=== PATIENT | female | born 1995 | race Caucasian/White ===

== ENCOUNTER → 2019-09-13 | Outpatient (CLI) | payer BC ==
--- NOTE | 2019-09-13 16:18 | REP ---
Clinical: Anatomical evaluation. Comparison: None . Findings: Examination demonstrates a single live intrauterine in cephalic presentation. motion is identified by technologist. Placenta is noted posterior and grade I without evidence for placenta previa or abruption. Amniotic fluid volume is normal. Cervix measures 3.1 cm in length and appears closed. No evidence for nuchal cord. Gestational age by current measurements 19 weeks 2 days with JUANJOSE 02/05/2020 . FHR equals 140 beats per minute. BPD 4.5 cm 19 weeks 4 days HC 16.3 cm 19 weeks 1 day AC 14.4 cm 19 weeks 5 days FL 3.0 cm 19 weeks 3 days HL 3.0 cm 20 weeks 0 days HC/AC ratio 1.13 Estimated weight 297 grams ( 56 percentile). Anatomical assessment demonstrates normal structures including cranium, choroid plexus, cavum, cerebellum/posterior fossa, facial features, lungs, cardiac ventricular outflow tracts, diaphragm, stomach, cord insertion/three-vessel cord, kidneys/bladder, spine, and extremities. Four-chamber heart view demonstrates echogenic focus in the left cardiac ventricle consistent with prominent chordae tendineae. Impression: Single live intrauterine in cephalic presentation demonstrating appropriate estimated weight. Anatomical findings as above.
== END ==
LOC: M WHC 12:55
PROVIDERS: ATTEND Advanced Practice Midwife
DX: Z36.3 Encounter for antenatal screening for malformations (principal); Z3A.19 19 weeks gestation of pregnancy

== ENCOUNTER → 2019-10-24 | Outpatient (REF) | payer BC ==
[~2019-10-24] MED LIST: PRENTAB9 PO; TUMS500C PO
[2019-11-26 10:44] LABS: HEMATOCRIT 37.1 % (36.0-47.0); HEMOGLOBIN 12.4 g/dl (12.0-15.5); MEAN CORPUSCULAR HGB CONC 33.4 g/dl (32.0-36.5); MEAN CORPUSCULAR VOLUME 95.9 fl (80.0-96.0); PLATELET COUNT, AUTOMATED 227 10^3/uL (150-450); RED BLOOD COUNT 3.87 10^6/uL (4.00-5.40); WHITE BLOOD COUNT 9.4 10^3/uL (4.0-10.0)
== END ==
LOC: M SFHCWAGY 16:14
PROVIDERS: ATTEND Advanced Practice Midwife
DX: Z34.02 Encounter for supervision of normal first pregnancy, second trimester (principal)

== ENCOUNTER → 2019-12-05 | Outpatient (CLI) | payer BC ==
--- NOTE | 2019-12-15 08:12 | REP ---
LIMITED OBSTETRICAL ULTRASOUND CLINICAL: Age discrepancy. TECHNIQUE: Transabdominal obstetrical ultrasound with color Doppler evaluation. FINDINGS: Ultrasound examination demonstrates single live advanced gestation in cephalic presentation. motion identified by technologist. Placenta noted posteriorly and grade 1 without placenta previa or abruption. Amniotic fluid volume is normal. Cervix measures 3.3 cm in length and appears closed. Gestational age by LMP 32 weeks 1 day with estimated date of delivery 01/29/2020. Gestational age by current measurements 30 weeks 3 days with estimated date of delivery 02/10/2020. heart rate 149 beats per minute. BPD 7.5 cm 30 weeks 0 days. HC 27.4 cm 29 weeks 6 days AC 25.9 cm 30 weeks 0 days. FL 6.0 cm 31 weeks 3 days. HL 5.3 cm 30 weeks 5 days HC/AC ratio 1.06. Estimated weight 1,571 grams (less than 3rd percentile based on age by LMP). KATIE 11.5 cm. IMPRESSION: Single live advanced gestation in cephalic presentation. Estimated weight falls below 3rd percentile, and fetus appears small for age based on measurements. MTDD
== END ==
LOC: M WHC 09:57
PROVIDERS: ATTEND Obstetrics & Gynecology
DX: O36.5913 Maternal care for other known or suspected poor fetal growth, first trimester, fetus 3 (principal); Z3A.32 32 weeks gestation of pregnancy

== ENCOUNTER → 2019-12-15 | Outpatient (CLI) | payer BC ==
--- NOTE | 2019-12-25 10:18 | REP ---
OB ULTRASOUND BIOPHYSICAL PROFILE HISTORY: Intrauterine growth restriction. TECHNIQUE: Real-time sonographic evaluation of the gravid uterus is performed. FINDINGS: There is a single living intrauterine gestation. Estimated gestational age is reportedly 33 weeks 4 days, estimated date of confinement (EDC) 01/29/2020. position is cephalic. Placenta is posterior and grade 1 with no previa or abruption. Three vessel umbilical cord is noted, with S/D ratio of the umbilical artery 2.1 to 2.3. heart rate is 134 beats per minute. Amniotic fluid is within normal limits. Amniotic fluid index (KATIE) 11.1, normal range 8.2 to 24.7. Biophysical profile score is 8/8. Cervix is closed and measures 3.1 cm in length. MTDD
== END ==
LOC: M WHC 11:24
PROVIDERS: ATTEND Obstetrics & Gynecology
DX: O36.5930 Maternal care for other known or suspected poor fetal growth, third trimester, not applicable or unspecified (principal); Z3A.33 33 weeks gestation of pregnancy

== ENCOUNTER → 2019-12-21 | Outpatient (CLI) | payer BC ==
--- NOTE | 2019-12-26 08:05 | REP ---
OB ULTRASOUND HISTORY: Intrauterine growth restriction. TECHNIQUE: Real-time sonographic evaluation of the gravid uterus is performed. FINDINGS: There is a single living intrauterine gestation. The estimated gestational age is reportedly 34 weeks 1 day, estimated date of confinement (EDC) 01/31/2020. Todays measurements again demonstrate estimated weight less than 5th percentile with the average ultrasound age today again about two weeks behind the expected established gestational age, as documented on the ultrasound of 12/05/2019. BIOMETRY AND GROWTH: BPD 78 mm 31 weeks 3 days 11th percentile HC 289 mm 31 weeks 5 days 15th percentile AC 268 mm 30 weeks 6 days Less than 5th percentile Femur length 64 mm 33 weeks 1 day 35th percentile AC/HC ratio 1.08 Normal 0.94 to 1.13 Estimated weight 1819 g Less than 3rd percentile position is cephalic. Placenta is posterior and grade 2 with no previa or abruption. Three-vessel cord is noted. heart rate is 115 beats per minute. Amniotic fluid is within normal limits. Amniotic fluid index (KATIE) 12.8 within normal range of 8.1 to 24.8. Biophysical profile score 8/8. Cervix is closed and measures 3.2 cm in length. S/D ratio of the umbilical artery is measured to be 2.1 to 2.3. MTDD
== END ==
LOC: M WHC 13:04
PROVIDERS: ATTEND Advanced Practice Midwife
DX: Z34.83 Encounter for supervision of other normal pregnancy, third trimester (principal); Z3A.34 34 weeks gestation of pregnancy

== ENCOUNTER → 2019-12-27 | Outpatient (CLI) | payer BC ==
--- NOTE | 2020-01-01 09:10 | REP ---
BIOPHYSICAL PROFILE CLINICAL: wellbeing. TECHNIQUE: Real-time ascencio scale obstetrical ultrasound using curved array transducer with color Doppler evaluation. COMPARISON: 12/21/2019. FINDINGS: Ultrasound examination demonstrates a single live advanced gestation in cephalic presentation. motion identified by technologist. Placenta noted posteriorly and grade 2 without placenta previa or abruption. Amniotic fluid is normal. Cervix measures 3 cm in length and appears closed. Gestational age by last menstrual period (LMP) 35 weeks 0 days with estimated date of delivery 01/31/2020. heart rate 143 beats per minute. Amniotic fluid index: 11.6 cm. Biophysical profile score 8/8. Umbilical artery S/D ratio: Placental insertion 2.0. Mid cord 2.3. insertion 2.1. Limited anatomical assessment cannot exclude nuchal cord. IMPRESSION: Single live advanced gestation in cephalic presentation. Biophysical profile score and amniotic fluid volume are normal. Nuchal cord cannot definitively be excluded. MTDD
== END ==
LOC: M WHC 12:45
PROVIDERS: ATTEND Obstetrics & Gynecology
DX: Z34.93 Encounter for supervision of normal pregnancy, unspecified, third trimester (principal); Z3A.35 35 weeks gestation of pregnancy

== ENCOUNTER → 2020-01-10 | Outpatient (CLI) | payer BC ==
--- NOTE | 2020-01-11 08:30 | REP ---
INDICATION: IUGR,BPP W/CORD DOPPLERS COMPARISON: 12/27/2019 TECHNIQUE: Transabdominal obstetrical ultrasound with color Doppler evaluation. FINDINGS: Examination demonstrates a single live intrauterine in cephalic presentation. motion is identified by technologist. Placenta is noted posterior and grade 2 without evidence for placenta previa or abruption. Amniotic fluid volume is normal. Cervix measures 3.1 cm in length and appears closed.. Gestational age by LMP 37 weeks 0 days with JUANJOSE 01/31/2020. Gestational age by 1st ultrasound 37 weeks 2 days with JUANJOSE 01/29/2020. FHR equals 140 beats per minute. Biophysical profile score: 8/8 KATIE: 10.7 cm Umbilical artery 1 s/D: 2.25 (1.59-3.43) Umbilical artery 2 S/D: 2.50 (1.59-3.43). IMPRESSION: Single live advanced gestation in cephalic presentation. Biophysical profile score, and amniotic fluid index are within normal limits. <Electronically signed by Stanley Payne > 01/11/20 [id number]
== END ==
LOC: M WHC 13:45
PROVIDERS: ATTEND Obstetrics & Gynecology
DX: O36.5931 Maternal care for other known or suspected poor fetal growth, third trimester, fetus 1 (principal); Z3A.37 37 weeks gestation of pregnancy

== ENCOUNTER → 2020-01-10 | Outpatient (REF) | payer BC | LOC: M SFHCWAGY 17:16 | PROVIDERS: ATTEND Advanced Practice Midwife | DX: O36.5930 Maternal care for other known or suspected poor fetal growth, third trimester, not applicable or unspecified (principal) ==

== ENCOUNTER 2020-01-18 15:15 | Inpatient (IN) | payer BC ==
[~2020-01-18] VITALS: Ht 144.8 cm; Wt 57.4 kg
[2020-01-18 15:35] VITALS: BP 118/73
[2020-01-18] MEDS ORDERED: TUMS500C PO (15:58)
[2020-01-18] MEDS ORDERED: PRENTAB9 PO (15:58)
[2020-01-18] MEDS: miSOPROStol 50 MCG 1/2 TAB (S0191) SL SCH ×2 (16:45→20:48)
[2020-01-18 16:50] LABS: HEMATOCRIT 35.7 % (36.0-47.0); HEMOGLOBIN 11.8 g/dl (12.0-15.5); MEAN CORPUSCULAR HEMOGLOBIN 30.4 pg (27.0-33.0); MEAN CORPUSCULAR HGB CONC 33.1 g/dl (32.0-36.5); PLATELET COUNT, AUTOMATED 147 10^3/uL (150-450); RED BLOOD COUNT 3.88 10^6/uL (4.00-5.40); WHITE BLOOD COUNT 9.7 10^3/uL (4.0-10.0)
[2020-01-18 18:00] LABS: HEPATITIS B SURFACE ANTIGEN NEGATIVE (NEGATIVE); HIV 1&2 SCREEN CENTAUR NEGATIVE (NEGATIVE)
[2020-01-18 18:03] VITALS: BP 120/57
[2020-01-18 19:04] VITALS: BP 121/58
--- NOTE | 2020-01-18 19:09 | HPEPDOC ---
Obstetrical History & Physical General Date of Admission Jan 18, 2020 at 15:15 History of Present Illness 24 yp female at 38 1/7 weeks gestation by 10 week ultrasound (EDC=01/31/2020) presents for labor induction due to severe IUGR (<3%). SHe denies contractions. good movement. Information Provided By: Patient Age: 24 : 1 Term: 0 Pre-term: 0 Abortions: 0 Livin Care Care: Good Care Dating Final EDC: Jan 31, 2020 Final EDC by: 1st trimester (US) Antepartum Course Diagnos(e)s IUGR, symmetrical on multiple ultrasounds Past Medical History Past Obstetrical History : Past Obstetrical History: Primgrav[facility]IN NURSE SPEC History: No pertinent history Past Medical History Surgical History: Denies/None Family History Significant Family History: No pertinent family hx Social History Marital Status: Single * Smoker: former Smoker Allergies Coded Allergies: No Known Allergies (Unverified , 01/18/20) Medications Scheduled Calcium Carbonate (Tums) 200 Mg Tab.chew, 2 TAB PO QID for cough and congestion No.137/Iron/Folic Acd ( Vitamin Tablet) 1 Each Tablet, 1 TAB PO DAILY Physical Examination Physical Examination GENERAL: Alert and oriented times three. BREAST: . ABDOMEN: Gravid and non-tender to touch. FETUS: Is vertex (VTX) by sterile vaginal examination (SVE), fetus is vertex (VTX) by Anthony. HEART RATE: Regular rate and rhythm. LUNGS: Clear to auscultation (CTA). EXTREMITIES: No edema. No clonus. Deep tendon reflexes (DTRs) + . Laboratory Data 24H LABS Laboratory Tests 2 01/18/20 16:39: Nucleated Red Blood Cells % (auto) 0.0, Syphilis Serology NONREACTIVE, Hepatitis B Surface Antigen NEGATIVE, HIV Antigen/Antibody Combo Qual NEGATIVE CBC/BMP Laboratory Tests 01/18/20 16:39 Pertinent Laboratoy Data Blood Type: O+ Group B Streptococcus: Positive Vaginal Examination Dilation: 1cm Effacement: 70% Station: -2 Cervical Consistency: Medium Cervical Position: Posterior Presentation: Cephalic presentation Assessment Variability: Moderate Accelerations: Positive Decelerations: None Tocometer Frequency: irregular Duration: less than 60 seconds Strength: palpated as mild Assessment/Plan Assessment Pt is a 24-year-old (G)1 para (P)0 at 38+1 weeks by 10-week ultrasound. Presents to Labor and Delivery (L&D) for induction due to severe IUGR. Plan Admit and orient. Group B Streptococcus (GBS) positive Labs and intravenous (IV) per unit protocol. Counseled on induction of labor (IOL). Anticipate normal spontaneous delivery (). C-S as appropriate. KENNY BARRETT MD Jan 18, 2020 19:09
[2020-01-18 20:21] VITALS: BP 109/63
[2020-01-18 22:49] VITALS: BP 108/56
[2020-01-18] MEDS ORDERED: BUTORPHANOL 2 MG/ML INJ (J0595) IV ONE (23:30)
[2020-01-18] MEDS ORDERED: PROMETHAZINE INJ 25 MG/ML VIAL (J2550) IV ONE (23:30)
[2020-01-19] VITALS (54 sets, daily range): BP systolic 97–150; BP diastolic 54–86
[2020-01-19] MEDS: miSOPROStol 50 MCG 1/2 TAB (S0191) SL SCH ×3 (01:07→08:45)
--- NOTE | 2020-01-19 08:11 | IPNPDOC ---
Text Note Date of Service The patient was seen on 01/19/20. NOTE Inpatient Reports good movement, contractions that are increasing intensity. Denies vaginal bleeding, LOF. Last Cytotec at approximately 0530. SVE 160/-1, midposition, soft by Doris, TIP FHR 140bpm, moderate variability, positive accelerations, no decelerations. UC every 2-4 minutes, lasting 60-100 seconds, mild to moderate on palpation. Plan to eat breakfast. Start Pitocin at [address] Catheter[address] Dr[address] Anaya aware of POC. VS,Fishbone, I+O VS, Fishbone, I+O Laboratory Tests 01/18/20 16:39 Vital Signs Date Time Temp Pulse Resp B/P (MAP) Pulse Ox O2 Delivery O2 Flow Rate FiO2 01/19/20 06:32 88 111/72 (85) 01/19/20 05:04 98.3 01/18/20 20:21 16 Emerita Ureña CNM Jan 19, 2020 08:11
[2020-01-19] MEDS ORDERED: LACTATED RINGER'S 1000 ML IV ONE (08:45)
[2020-01-19] MEDS ORDERED: LR 1,000 ML IV SCH (09:55)
[2020-01-19] MEDS ORDERED: OXYTOCIN 30 UNITS IN 0.9% NaCl 500ML IV BAG (J2590) As Ordered ONE (09:57)
[2020-01-19] MEDS ORDERED: BUTORPHANOL 2 MG/ML INJ (J0595) IV ONE (10:00)
[2020-01-19] MEDS ORDERED: PROMETHAZINE INJ 25 MG/ML VIAL (J2550) IV ONE (10:00)
[2020-01-19] MEDS ORDERED: OXYTOCIN DRIP 30 UNITS in IV 1 EA IV SCH ×2 (10:00→19:45)
[2020-01-19] MEDS ORDERED: PENICILLIN G POTASSIUM IV 5 MU in D5W MINI-BAG PLUS 100 ML IV STA (12:25)
[2020-01-19] MEDS ORDERED: FENTANYL 2MCG/ML ROPIVACAINE 0.2% IN 0.9% NACL 100ML IVBAG As Ordered ONE (12:25)
--- NOTE | 2020-01-19 12:25 | IPNPDOC ---
Text Note Date of Service The patient was seen on 01/19/20. NOTE Reports increased pain despite Stadol and Phenergan. Breathing with coaching through contractions. SVE with BBOW, anterior by TIP George with informed consent. FHR 115bpm, cat 1 tracing UC every 2-4 min, 60-90seconds, moderate on palpation. Requesting epidural placement. Pitocin shut off for epidural placement, will continue when epidural placed. VS,Fishbone, I+O VS, Fishbone, I+O Laboratory Tests 01/18/20 16:39 Vital Signs Date Time Temp Pulse Resp B/P (MAP) Pulse Ox O2 Delivery O2 Flow Rate FiO2 01/19/20 09:43 16 01/19/20 06:32 88 111/72 (85) 01/19/20 05:04 98.3 Emerita Ureña CNM Jan 19, 2020 12:25
[2020-01-19] MEDS ORDERED: LACTATED RINGER'S 1000 ML IV PRN (13:30)
[2020-01-19] MEDS ORDERED: REFRIGERATOR IV KEYS XX PRN (13:30)
[2020-01-19] MEDS ORDERED: EPIDURAL COMMENT XX SCH (13:30)
[2020-01-19] MEDS ORDERED: diphenhydrAMINE 50MG/ML VIAL (J1200) IV PRN (13:30)
[2020-01-19] MEDS ORDERED: NALOXONE INJ 0.4MG/1ML VIAL (J2310 PER 1MG) IV PRN (13:30)
[2020-01-19] MEDS ORDERED: ONDANSETRON 4MG/2ML VIAL IV PRN (13:30)
[2020-01-19] MEDS ORDERED: FENTANYL/ROPIVACAINE/NACL BAG 100 ML EPIDURAL SCH (13:30)
[2020-01-19] MEDS ORDERED: EPIDURAL/PCA KEYS XX PRN (13:30)
[2020-01-19] MEDS ORDERED: ePHEDrine SULFATE 25 MG/5 ML(5MG/ML) SYRINGE IV PRN (13:30)
--- NOTE | 2020-01-19 15:15 | IPNPDOC ---
Text Note Date of Service The patient was seen on 01/19/20. NOTE Inpatient Reports some pressure with epidural but not overwhelming, able to rest. SVE Ant lip/100/0, BBOW. Small amount of bloody show noted at introitus and on glove. FHR 120, moderate variability, positive acels, no decels, Cat 1 UC every 5-7 min, lasting 60-110 seconds, strong on palpation. PCN will be complete at 1630. Anticipate . VS,Fishbone, I+O VS, Fishbone, I+O Laboratory Tests 01/18/20 16:39 Vital Signs Date Time Temp Pulse Resp B/P (MAP) Pulse Ox O2 Delivery O2 Flow Rate FiO2 01/19/20 14:37 68 108/62 (77) 01/19/20 09:43 16 01/19/20 05:04 98.3 Emerita Ureña CNM Jan 19, 2020 15:15
[2020-01-19] MEDS ORDERED: PENICILLIN G POTASSIUM IV 2.5 MU in IV 1 EA IV SCH (16:30)
--- NOTE | 2020-01-19 16:44 | IPNPDOC ---
Text Note Date of Service The patient was seen on 01/19/20. NOTE Inpatient Patient reports feeling contractions more with epidural. Currently Cat 1 FHR 130 bpm, moderate variability, no decelerations, had 2 prolonged decelerations that were alleviated with position changes and LR bolus. UC every 4-5min, 60-120 seconds long, moderate to strong on palpation. SVE 10/100/+1, small amount of bloody show noted by TIP George AROM moderate amount of clear fluid. Pitocin remains off. Pushed x1, not effective, opted to labor down then begin to push. VS,Fishbone, I+O VS, Fishbone, I+O Laboratory Tests 01/18/20 16:39 Vital Signs Date Time Temp Pulse Resp B/P (MAP) Pulse Ox O2 Delivery O2 Flow Rate FiO2 01/19/20 14:37 68 108/62 (77) 01/19/20 09:43 16 01/19/20 05:04 98.3 Emerita Ureña CNM Jan 19, 2020 16:35
[2020-01-19 19:15] LABS: CORD GAS ABE A -9.6; CORD GAS ABE V -5.6; CORD GAS HCO3 A 19.2 MEQ/L; CORD GAS HCO3 V 19.4 MEQ/L; CORD GAS O2 SAT A 67.7 %; CORD GAS O2 SAT V 46.3 %; CORD GAS PCO2 A 52.2 mmHg; CORD GAS PCO2 V 36.8 mmHg; CORD GAS PH A 7.183 UNITS; CORD GAS PH V 7.339 UNITS; CORD GAS PO2 A 32.1 mmHg; CORD GAS PO2 V 20.3 mmHg; CORD GAS SBC A 16.3 MEQ/L; CORD GAS SBC V 18.6 MEQ/L; CORD GAS TCO2 A 20.8 MEQ/L; CORD GAS TCO2 V 20.5 MEQ/L
[2020-01-19] MEDS ORDERED: MEASLES,MUMPS,RUBELLA VACCINE INJ (MMR-II) (90707) SC SCH (19:45)
[2020-01-19] MEDS ORDERED: METHYLERGONOVINE MALEATE 0.2 MG TAB PO PRN (19:45)
[2020-01-19] MEDS ORDERED: ANUSOL HC CREAM 30GM TOP PRN (19:45)
[2020-01-19] MEDS ORDERED: DOCUSATE SODIUM 100 MG CAP PO PRN (19:45)
[2020-01-19] MEDS ORDERED: ACETAMINOPHEN TAB 650MG DOSE (2X325MG) PO PRN (19:45)
[2020-01-19] MEDS ORDERED: MOM 30ML SUSPENSION UDC PO PRN (19:45)
[2020-01-19] MEDS ORDERED: IBUPROFEN 800 MG TAB PO PRN (19:45)
[2020-01-19] MEDS ORDERED: ACETAMINOPHEN 500 MG TAB PO PRN (19:45)
[2020-01-19] MEDS ORDERED: DIBUCAINE 1% OINTMENT 30GM TOP PRN (19:45)
[2020-01-19] MEDS ORDERED: RHOGAM 300 MCG (1500 IU) INJ (J2790) IM SCH (19:45)
[2020-01-19] MEDS ORDERED: IBUPROFEN 600MG TAB PO PRN (19:45)
--- NOTE | 2020-01-19 19:48 | DNPDOC ---
[facility] Delivery Note Delivery Note DATE OF DELIVERY: 01/19/20 @ 1849 PREDELIVERY DIAGNOSIS: 38-2/7 weeks' gestation, IOL for IUGR. POST DELIVERY DIAGNOSIS: Delivered. PROCEDURE: Spontaneous vaginal delivery. PROVIDER: EDYTA Leo/ TIP George ANESTHESIA: Epidural. ESTIMATED BLOOD LOSS: 100 mL. FINDINGS: 5 pound 14 ounce, 2660g, Male infant, Score 8/9, cord around right hand x1, reduced, right compound hand. DELIVERY SUMMARY: Maria R is a 24-year-old 1 now para 1-0-0-1 who was admitted to labor and delivery for IOL for IUGR <3%. She had 3 doses of Cytotec throughout the night. Pitocin was started this morning and she received Stadol and Phenergan at 0943. Epidural was given this afternoon when she reached active labor, and PCN was started for GBS prophylaxis. AROM for clear fluid at 1612 and she progressed to full dilation at 1720, and labored down until 1740 when she began pushing. She pushed effectively and the head was delivered NICOLE with restitution to LOT, anterior shoulder was delivered with ease and corpus followed with right compound hand. Viable male was placed skin to skin on maternal abdomen, bulb suctioned and stimulated. Cord blood gases were collected, arterial blood gas 7.13, Base excess -9.6 and venous blood gas 7.339 with Base Excess -5.6. Delayed cord clamping was done for first 2 minutes of life, clamped x2 and cut by FOB. Cord blood was collected. Intact placenta delivered spontaneously at 1900. IV Pitocin bolus and fundal massage implemented. Fundus firmed to umbilicus with small flow. Vagina, cervix, and perineum were examined and bilateral labial abrasions were repaired with 3.0 Vicryl Rapide. Sharps and sponges counted and correct. Parents plan to name him "Joey" and breastfeed him. Mother and left in stable condition. Emerita Ureña CNM Jan 19, 2020 19:48
[2020-01-20 06:00] VITALS: BP 130/60
--- NOTE | 2020-01-20 07:43 | IPNPDOC ---
Text Note Date of Service The patient was seen on 01/20/20. NOTE Subjective: Maria R is a 24 y/o status post vaginal delivery, day 1. Ambulating without difficulty. Voiding and passing flatus. Tolerating a regular diet. with a nipple shield and formula feeding as needed. Mild cramping with . Pain well controlled with Tylenol and Motrin. Objective: Vital signs stable, normotensive, afebrile. Respiratory: Regular rate, no accessory muscle use. Abdomen: Soft, non tender, Fundus firm at U-1, small rubra lochia. Extremities: No edema, no calf tenderness Assessment: Day 1 Plan: 1. Tylenol and Motrin as needed for pain. 2. Encourage and ambulation. 3. Discharge home tomorrow. VS,Fishbone, I+O VS, Fishbone, I+O Vital Signs Date Time Temp Pulse Resp B/P (MAP) Pulse Ox O2 Delivery O2 Flow Rate FiO2 01/19/20 21:58 99.0 75 18 107/58 (74) 95 Room Air I&O- Last 24 Hours up to 6 AM 01/20/20 06:00 Intake Total 740 ml Output Total 600 ml Balance 140 ml Emerita Ureña CNM Jan 20, 2020 07:28
[2020-01-20] MEDS: PRENATAL VITAMINS CHEWABLE TABLET PO SCH (11:06)
[2020-01-20 18:00] VITALS: BP 124/79
[2020-01-21 05:59] VITALS: BP 123/64
[2020-01-21] MEDS: PRENATAL VITAMINS CHEWABLE TABLET PO SCH (08:41)
== END 2020-01-21 16:05 | disposition home or self-care (01) | DRG 560 ==
LOC: M LDI 15:15 → M OBS 01-19 21:40
PROVIDERS: ADMIT Specialist; ATTEND Advanced Practice Midwife
PROC: 3E0P7GC Introduction of Other Therapeutic Substance into Female Reproductive, Via Natural or Artificial Opening (ICD-10-PCS; 2020-01-18)
PROC: 10E0XZZ Delivery of Products of Conception, External Approach (ICD-10-PCS; principal; 2020-01-19)
PROC: 10907ZC Drainage of Amniotic Fluid, Therapeutic from Products of Conception, Via Natural or Artificial Opening (ICD-10-PCS; 2020-01-19)
DX: O36.5930 Maternal care for other known or suspected poor fetal growth, third trimester, not applicable or unspecified (principal); O99.824 Streptococcus B carrier state complicating childbirth; Z3A.38 38 weeks gestation of pregnancy; O32.6XX0 Maternal care for compound presentation, not applicable or unspecified; O69.82X0 Labor and delivery complicated by other cord entanglement, without compression, not applicable or unspecified; Z37.0 Single live birth

== ENCOUNTER → 2020-01-18 | Outpatient (CLI) | payer BC ==
--- NOTE | 2020-01-18 14:33 | REP ---
INDICATION: IUGR,GROWTH,BPP W/CORD DOPPLERS. COMPARISON: 01/10/2020 as well as other prior exams. TECHNIQUE: Real-time sonographic evaluation of the gravid uterus performed. FINDINGS: Estimated gestational age is30 weeks 1 day, EDC 01/31/2020. Today's measurements indicate suboptimal growth. Presentation: Cephalic Placenta posterior, grade 3, without evidence of placenta previa. heart rate is recorded at 134 beats per minute. Amniotic fluid is subjectively normal. KATIE 14.3 (normal 7.3-23.8) Biophysical profile score 8/8. Biometry chart: BPD: 84 mm, 33 weeks weeks 4 days, less than 5th percentile. HC: 308 mm, 34 weeks 2 days, less than 5th percentile AC: 307 mm, 34 weeks 4 days, less than 5th percentile Femur length: 67 mm, 34 weeks 3 days, less than 5th percentile HC to AC ratio: 1.00, normal range 0.9-1.09. Estimated weight: 2422g, less than 3rd percentile. SD ratio umbilical artery 2.08-2.71 ( normal 1.55-3.35) RI 0.52-0.63 ( normal 0.42-0.70). IMPRESSION: Viable single intrauterine gestation as above. <Electronically signed by Deon Truong > 01/18/20 [id number]
== END ==
LOC: M WHC 12:55
PROVIDERS: ATTEND Obstetrics & Gynecology
DX: Z34.82 Encounter for supervision of other normal pregnancy, second trimester (principal)